=== PATIENT | female | born 1980 | race Caucasian/White ===

== ENCOUNTER 2020-02-20 09:18 | Inpatient (IN) | payer OTHER ==
[~2020-02-20] VITALS: Ht 165.1 cm; Wt 113.4 kg
[2020-02-20 09:18] VITALS: BP 155/87
[2020-02-20 10:38] LABS: HEMATOCRIT 37.4 % (37.0-47.0); HEMOGLOBIN 12.2 gm/dL (12.0-15.0); MCH 26.9 pg (26.0-34.0); MCHC 32.6 g/dL (28.0-37.0); MCV 82.5 fL (80.0-100.0); RBC 4.53 mil/uL (4.20-5.00); WBC 3.8 thou/uL (4.0-11.0)
[2020-02-20 10:50] LABS: ANION GAP 8 mmol/L (7-16); BUN 9 mg/dL (7-18); CALCIUM 8.8 mg/dL (8.5-10.1); CHLORIDE 100 mmol/L (98-107); CO2 28 mmol/L (21-32); CREATININE 1.1 mg/dL (0.6-1.0); GLUCOSE 110 mg/dL (74-106); POTASSIUM 3.8 mmol/L (3.5-5.1); SODIUM 136 mmol/L (136-145)
--- NOTE | 2020-02-20 10:57 | EKG ---
[facility] [place] [address] ELECTROCARDIOGRAM REPORT Name: SOUMYA CONKLIN Room #: [facility].#: [id number] Admission: Attend Phys: Discharge: Date of : 78 Report #: [id number] THIS REPORT FOR: cc: Frederick Foss MD, Patrick MD [facility] ~ THIS REPORT FOR: //name// [facility] ED Test Date: 2020-02-20 Test Time: 10:14:17 Pat Name: SOUMYA CONKLIN Department: Room: Gender: F Home Demonstrator: [facility] : 1980 Requested By: Parminder Ramos Order Number: [id number] MD: Lexa Mc Measurements Intervals [place] Rate: 103 P: [place]: QRS: -29 QRSD: 99 T: 79 QT: 341 QTc: 447 Interpretive Statements Pacemaker spikes or artifacts NSR Borderline left axis deviation RSR' in V1 or V2, probably normal variant No previous ECG available for comparison Electronically Signed On 02-20-2020 10:57:05 TEACHER BALLET by Lexa Mc [email or web address] <ELECTRONICALLY SIGNED> By: Lexa Mc MD, FACC 02/20/20 1057 1014 1014 Lexa Mc MD, FACC /EPI
[2020-02-20 10:59] LABS: TROPONIN-I <0.06 ng/mL (<0.06)
--- NOTE | 2020-02-20 11:55 | NUR ---
PHARMACY STATES THEY DO NOT HAVE THE DEXAmethasone in stock that they normally do. order has to be changed before dex can be admin, order is being changed at this time.
[2020-02-20 12:28] LABS: BE(vivo) 1.2 mmol/L (-2 to +3); HCO3 25.1 mmol/L (22.0-26.0); PCO2 37.7 mmHg (35.0-45.0); PO2 137.3 mmHg (80.0-100.0); pH 7.442 (7.360-7.450); sO2 98.8 % (92.0-98.0)
--- NOTE | 2020-02-20 13:52 | NUR ---
SPOKE TO PHARMACIST REGARDING INCOMPLETE ORDER FOR REMDESIVIR. HE STATED HE HAS CONTACTED ADMITTING DR REGARDING LFT THAT NEED TO BE COMPLETED PRIOR TO VERIFYING ORDER.
[2020-02-20 14:37] LABS: ALBUMIN 3.3 g/dL (3.4-5.0); DIRECT BILIRUBIN 0.1 mg/dL (<0.1-0.2); TOTAL BILIRUBIN 0.2 mg/dL (0.2-1.0); TOTAL PROTEIN 7.8 g/dL (6.4-8.2)
[2020-02-20] MEDS ORDERED: ESKALITH CR450 MG PO (16:28)
[2020-02-20] MEDS ORDERED: MINIPRESS2 MG PO (16:29)
[2020-02-20] MEDS ORDERED: TRAZODONE HCL100 MG PO (16:30)
[2020-02-20] MEDS ORDERED: QUETIAPINE FUM400 M1 PO (16:30)
[2020-02-20] MEDS ORDERED: LORATIDINE 10 M10 M1 PO (16:30)
[2020-02-20] MEDS ORDERED: FLONASE 0.05%50 MCG NARES (16:31)
[2020-02-20 17:16] VITALS: BP 124/85
[2020-02-20 20:03] VITALS: BP 146/74
[2020-02-20 20:09] VITALS: BP 146/74
[2020-02-20 23:54] VITALS: BP 152/91
[2020-02-21 00:18] VITALS: BP 146/80
[2020-02-21] MEDS ORDERED: QUETIAPINE FUM400 MG PO (00:30)
[2020-02-21] MEDS ORDERED: LITHIUM CARBON450 MG PO (00:31)
[2020-02-21] MEDS ORDERED: OXYBUTYNIN 5 MG5 M2 PO (00:33)
[2020-02-21 01:39] LABS: HEMATOCRIT 38.6 % (37.0-47.0); HEMOGLOBIN 12.5 gm/dL (12.0-15.0); MCH 26.8 pg (26.0-34.0); MCHC 32.4 g/dL (28.0-37.0); MCV 82.7 fL (80.0-100.0); RBC 4.67 mil/uL (4.20-5.00); RDW 15.3 % (10.5-14.5); WBC 5.5 thou/uL (4.0-11.0)
[2020-02-21 01:47] LABS: CALCIUM 8.4 mg/dL (8.5-10.1)
[2020-02-21 01:55] LABS: ALBUMIN 3.1 g/dL (3.4-5.0); TOTAL BILIRUBIN 0.3 mg/dL (0.2-1.0); TOTAL PROTEIN 7.3 g/dL (6.4-8.2)
[2020-02-21 05:44] VITALS: BP 126/76
[2020-02-21 07:04] VITALS: BP 123/60
--- NOTE | 2020-02-21 07:23 | NUR ---
ARRIVED FROM ER VIA BED. O2 TITRATED PER RT. HAD REACTION TO CONVALESCENT PLASMA. REPORTED TO ,ELOY RUSSELL, HAIRSPRING TRUER, HOSPITALIST. INFUSION WAS STOPPED IMMEDIATELY AND INVESTIGATION INITIATED PER BLOOD BANK. NEW ORDERS RECEIVED FROM AND CARRIED OUT. PT DID NOT C/O ANY DISCOMFORT. DENIES ITCHING,HIVES. ALL HOME MEDS RESTARTED PER HAIRSPRING TRUER ORDER AND HOME MEDS SEALED AND STORED IN ROOM PER PT BEING IN ISO FOR COVID. NO S/S ACUTE DISTRESS NOTED OR REPORTED AT THIS TIME. NO S/S ACUTE DISTRESS NOTED OR REPORTED AT THIS TIME. CARE TRANSFERRED TO INCOMING RN AT THIS TIME.
[2020-02-21 11:10] VITALS: BP 139/69
[2020-02-21 15:01] VITALS: BP 120/75
--- NOTE | 2020-02-21 15:29 | NUR ---
INITIAL ASSESSMENT: Received consult. JESSICA reviewed chart and spoke with nursing and attending physician. Pt was admitted from home due to pneumonia/COVID-19. Pt is in Enhanced Isolation. Pt had tested positive at [place] prior to admission. Pt has low grade fever and is on 5L of O2. Pt is on IV abx and IV steroids. Pt had convalescent plasma and has started course of Remdesivir. JESSICA placed call to pt's room. No answer. SW left voice message on pt's cell phone: [phone]. Per chart, pt has hx of bipolar disorder and asthma. Pt lives at home. JESSICA is following to assist as needed with discharge planning.
[2020-02-21 20:26] VITALS: BP 107/51
[2020-02-22 05:03] VITALS: BP 105/59
--- NOTE | 2020-02-22 05:41 | NUR ---
PT MAKING SLOW PROGRESS TOWARDS GOALS. O2 SAT LOW 90'S WITH O2 AT 5L PER NC. HARSH CONGESTED COUGH, MEDS PER ORDERS FOR COUGH. REPORTS IMPROVEMENT IN COUGH AFTER DOSING, ALLOWING HER TO SLEEP. LUNGS DIMINISHED WITH SOME COARSE SOUNDS NOTED OVER BOTH BASES THIS AM. CONTINUE TO MONITOR.
[2020-02-22 05:44] LABS: ALBUMIN 2.7 g/dL (3.4-5.0); DIRECT BILIRUBIN < 0.1 mg/dL (<0.1-0.2); SGOT 39 U/L (15-37); SGPT 38 U/L (30-65); TOTAL BILIRUBIN 0.2 mg/dL (0.2-1.0)
--- NOTE | 2020-02-22 11:35 | HC ---
[facility] [place] [address] CONSULTATION Name: SOUMYA CONKLIN Room #: 350- ADM IN M.R.#: [id number] Admission: 02/20/20 Attend Phys: Patrice Jennings MD Discharge: Date of : 78 Report #: [id number] THIS REPORT FOR: cc: CHERISE - [place] family physician/PCP CHERISE - No family physician/PCP Edwin Enciso MD ~ DATE OF SERVICE: 02/21/2020 INFECTIOUS DISEASE CONSULTATION ATTENDING PHYSICIAN: Dr. Patrice Jennings REASON FOR EVALUATION: COVID-19 infection, complicated by pneumonitis, respiratory failure in the setting of asthma. HISTORY OF PRESENT ILLNESS: Chart reviewed, patient examined. This is a 39-year-old with known history of asthma, has been feeling unwell for last several days. Apparently, she was diagnosed with a SARS-CoV-2 roughly 6 days ago. This was noted to have worsening signs and symptoms including productive cough, dyspnea and generalized aches and pains. She did have diarrhea as well. She had poor p.o. intake, subsequently developed fevers. She presented due to feeling of significant chest discomfort. Evaluation with chest x-ray noted interstitial opacities. She was borderline pancytopenic. ABGs on 12 liters showed a pO2 of 137. She concerns about progressive disease in this setting given her underlying lung issues that she was initiated on therapy with remdesivir as well as corticosteroids for the coronavirus as well as empiric antibacterials with ceftriaxone and azithromycin. ALLERGIES: LISTED TO PENICILLIN CAUSES URTICARIA. CURRENT MEDICATIONS: Include trazodone, ceftriaxone, fluticasone, loratadine, azithromycin, lithium, prazosin, quetiapine, dexamethasone, zinc, cholecalciferol, albuterol, remdesivir standard dosing 5 days. PAST MEDICAL HISTORY: As noted above, asthma, history of PTSD, bipolar disease. SOCIAL HISTORY: Nonsmoker, occasional ethanol, no illicit drug use. FAMILY HISTORY: Noncontributory. REVIEW OF SYSTEMS: Otherwise, unremarkable 10-point review of systems. PHYSICAL EXAMINATION: GENERAL: She appears ill, not overtly toxic. She has depressed affect. She is [facility] [address] [place] [address] CONSULTATION Name: SOUMYA CONKLIN Room #: 350-P [facility] IN M.R.#: [id number] Admission: 02/20/20 Attend Phys: Patrice Jennings MD Discharge: Date of : 78 Report #: [id number] in moderate distress secondary to increased respiratory effort, appears reasonably well nourished. VITAL SIGNS: Temperature 99.4, pulse 81, respirations 16, blood pressure 139/69. SKIN: Warm, dry, no rashes. HEENT: Normocephalic. Extraocular muscles are intact. NECK: Supple. Does have nasal cannula in place. LUNGS: Some wheezes, scattered coarse breath sounds, primarily at the lower lobes. HEART: Regular. I do not appreciate murmur. ABDOMEN: Mildly distended, soft, nontender. EXTREMITIES: No cyanosis. GENITOURINARY AND RECTAL: Deferred. LABORATORY DATA: Chest x-ray showed moderate widespread bilateral multifocal partially consolidative infiltrates, mild cardiomegaly. Electrolytes: Sodium 134, potassium 4.0, chloride 97, bicarbonate is 27, anion gap of 10, BUN and creatinine 8 and 1.0, glucose of 131, albumin 3.1, total protein 7.3. Liver functions are remarkable for AST of 53, ALT is 49. CBC: White count up to 5.5, H and H 12.5 and 38.6, platelets of 152. ABGs: pH 7.442, pCO2 of 37.7, pO2 of 137.3 was on 12 liters mask. ASSESSMENT AND PLAN: COVID-19 infection, complicated by pneumonitis, respiratory failure, does have some underlying asthma. We will continue current approach as prescribed. She remains somewhat tenuous. We will monitor expectantly. Wean off oxygen therapy as able. <ELECTRONICALLY SIGNED> By: Edwin Enciso MD 02/22/20 1135 1155 [id number] Edwin Enciso MD /nt
[2020-02-22 11:50] VITALS: BP 115/72
--- NOTE | 2020-02-22 14:56 | NUR ---
JESSICA reviewed chart and spoke with nursing and attending physician. Pt remains in Enhanced Isolation due to COVID-19. Pt febrile and is on IV abx. Pt is on IV steroids and completing course of Remdesivier. Pt is on 4L of O2. JESSICA placed call to pt's room to discuss possible discharge needs. No answer. JESSICA left voice message on pt's cell phon. Pt will need rest/exercise oximetry prior to discharge to determine if she needs home O2. JESSICA is following to assist as needed with discharge planning.
[2020-02-22 16:07] VITALS: BP 147/77
[2020-02-22 18:50] LABS: BASOPHILS 0.2 % (0.0-2.0); HEMATOCRIT 35.7 % (37.0-47.0); HEMOGLOBIN 11.6 gm/dL (12.0-15.0); LYMPHOCYTES 7.6 % (24.0-44.0); MCH 26.9 pg (26.0-34.0); MCHC 32.4 g/dL (28.0-37.0); MCV 82.9 fL (80.0-100.0); MONOCYTES 3.8 % (1.0-8.0); PLATELET COUNT 204 thou/uL (150-400); POLYS 88.4 % (36.0-66.0); RDW 15.8 % (10.5-14.5)
[2020-02-22 19:19] VITALS: BP 148/78
--- NOTE | 2020-02-22 19:31 | NUR ---
PATIENT CONT TO DECLINE AT THIS TIEM. CXRAY SHOWS WORSENING LUNGS, AND PATIENT IS NOTED TO BE NEED MORE OXYGEN WITH NO ACTIVITY. CURRENLTY ON 12L AND SATURATION IS LESS THAN 90%. ATTEMPTED TO USWE BIPAP AND PATEINT BECAME DEFENSIVE STATING SHE WILL NOT USE. EDUCATED ON NEED FOR BIPAP BUT SHE INSISTED SHE DOES NOT NEED IT.
[2020-02-22 21:57] LABS: BE(vivo) 1.9 mmol/L (-2 to +3); PCO2 44.4 mmHg (35.0-45.0); pH 7.402 (7.360-7.450); sO2 82.5 % (92.0-98.0)
[2020-02-22 21:58] LABS: PO2 46.7 mmHg (80.0-100.0)
[2020-02-23] VITALS (7 sets, daily range): BP systolic 110–160; BP diastolic 62–99
[2020-02-23 06:08] LABS: HEMATOCRIT 35.9 % (37.0-47.0); HEMOGLOBIN 11.5 gm/dL (12.0-15.0); MCH 26.5 pg (26.0-34.0); MCV 82.9 fL (80.0-100.0); RBC 4.33 mil/uL (4.20-5.00); RDW 15.8 % (10.5-14.5)
[2020-02-23 06:31] LABS: ALBUMIN 2.6 g/dL (3.4-5.0); DIRECT BILIRUBIN < 0.1 mg/dL (<0.1-0.2); SGOT 36 U/L (15-37); SGPT 31 U/L (30-65); TOTAL BILIRUBIN 0.2 mg/dL (0.2-1.0); TOTAL PROTEIN 7.2 g/dL (6.4-8.2)
[2020-02-23 06:37] LABS: POTASSIUM 4.2 mmol/L (3.5-5.1)
[2020-02-23 06:38] LABS: CALCIUM 8.6 mg/dL (8.5-10.1); CREATININE 0.9 mg/dL (0.6-1.0)
--- NOTE | 2020-02-24 00:47 | NUR ---
PT CONFUSED BIPOLAR, ANGRY AND ANXIOUS AT TIMES. TRAZADONE GIVEN FOR SLEEP. PT C/O EYES ITCHING AND ALLERGY SYMPTOMS. RECEIVING WEIGHER NOTIFIED PT WANTED BENADRYL AND ALREADY HAD TRAZADONE AND SEROQUL FOR SLEEP. BENADRYL 50 X1 GIVEN AND TYLENOL ES GIVEN FOR C/O ECKERT. PT IS RESTING QUIETLY PRESENTY. NO S/S DISTRESS.
[2020-02-24 02:19] LABS: HEMATOCRIT 36.2 % (37.0-47.0); HEMOGLOBIN 11.5 gm/dL (12.0-15.0); MCH 26.5 pg (26.0-34.0); MCHC 31.9 g/dL (28.0-37.0); MCV 83.3 fL (80.0-100.0); RBC 4.35 mil/uL (4.20-5.00); RDW 15.6 % (10.5-14.5); WBC 7.1 thou/uL (4.0-11.0)
[2020-02-24 02:29] LABS: ALBUMIN 2.6 g/dL (3.4-5.0); DIRECT BILIRUBIN < 0.1 mg/dL (<0.1-0.2); SGOT 39 U/L (15-37); SGPT 31 U/L (30-65); TOTAL BILIRUBIN 0.2 mg/dL (0.2-1.0); TOTAL PROTEIN 7.1 g/dL (6.4-8.2)
[2020-02-24 02:41] LABS: CALCIUM 8.7 mg/dL (8.5-10.1); POTASSIUM 4.4 mmol/L (3.5-5.1)
[2020-02-24 03:24] VITALS: BP 129/67
--- NOTE | 2020-02-24 03:43 | NUR ---
NOTIFIED COMMUNITY SERVICE OFFICER AND DR SOL PT RR 24-26. SAT 97%. WE WILL KEEP PT HERE FOR NOW SHE IS REFUSING BIPAP.
--- NOTE | 2020-02-24 03:47 | NUR ---
NOTIFIED NURSING CABLE SPLICER HELPER RR INCREASED TO 28. PT AWAKENS EASILY. SAT 97% FIO2 78, LF 55%. OTHER VSS PRESENTLY.
--- NOTE | 2020-02-24 03:49 | NUR ---
OSES RN TRANSPLANT STATED WE WILL KEEP HER HERE FOR NOW DUE TO LAST ICU BED AVAILABLE.
--- NOTE | 2020-02-24 05:50 | NUR ---
PT IS RESTING QUEITLY PRESENTLY WITHOUT C/O. SHE AWAKENS EASILY WHEN HER NAME IS CALLED. SATS 95-97 ON FL 55% AND FIO2 78. RR 28. RT IS AWARE AND BELT PRESS OPERATOR AWARE. NURSING BELT PRESS OPERATOR SPOKE WITH DR SOL ALSO. WE WILL KEEP HER HERE ON FLOOR FOR NOW DUE TO ONLY 1 ICU BED LEFT. PT IS REFUSING BIPAP. WILL CALL RR IF DETERIORATES.
[2020-02-24 07:34] VITALS: BP 129/78
--- NOTE | 2020-02-24 10:36 | NUR ---
discussed during prime time via phone call, she still requiring o2, possible will need vent and transfer to icu when bed opens. noted per chart she has been refusing bipap. no anticpated dc over the weekend. will cont following as needed for dc needs.
[2020-02-24 11:18] VITALS: BP 131/78
[2020-02-24 15:57] VITALS: BP 149/88
--- NOTE | 2020-02-24 18:36 | NUR ---
PATIENT CONT ON HIGH KEITH OXYGEN SAT ARE JUST ABOVE 90% WHILE SHE RESTS AND BELOW 90 WHEN SHE IS EATING. SHE IS ALER AND INCONT OF BOWEL AND BLADDER. PLEASANT WITH CARES. WILL CONT WITH PLAN OF CARE.
[2020-02-24 19:05] VITALS: BP 141/85
[2020-02-25 02:50] VITALS: BP 135/75
[2020-02-25 02:57] LABS: HEMATOCRIT 33.9 % (37.0-47.0); HEMOGLOBIN 10.9 gm/dL (12.0-15.0); MCH 26.7 pg (26.0-34.0); MCHC 32.2 g/dL (28.0-37.0); MCV 82.9 fL (80.0-100.0); RBC 4.09 mil/uL (4.20-5.00); RDW 15.4 % (10.5-14.5); WBC 7.5 thou/uL (4.0-11.0)
[2020-02-25 03:02] LABS: CALCIUM 8.9 mg/dL (8.5-10.1); POTASSIUM 4.4 mmol/L (3.5-5.1)
--- NOTE | 2020-02-25 04:16 | NUR ---
PT MAKING SLOW PROGRESS TOWARDS GOALS. PT STATES SHE HAS NOT BEEN OUT OF BED IN 2-3 DAYS. SHE HAS BEEN INCONTINENT OF URINE AND REPORTS SHE IS TOO SOB TO GET UP TO COMMODE. WILL ASK DAY RN TO REQUEST YANEZ. LUNGS DIMINISHED AND COARSE IN BOTH BASES. CONTINUE TO MONITOR.
[2020-02-25 12:14] VITALS: BP 143/76
[2020-02-25 15:26] VITALS: BP 140/78
--- NOTE | 2020-02-25 18:02 | NUR ---
PLEASANT WITH CARES. SHE CONT ON HIGH KEITH OXYGEN. NEW YANEZ CATH PLACED PATEITN IS BED BOUND AND CONSTANTLY WET. YANEZ PLACED IN ANTICIPATION OF POSSIBLE ICU ADMISSION AND INTUBATION. WILL CONT WITH PLAN OF CARE.
[2020-02-25 19:12] VITALS: BP 143/80
--- NOTE | 2020-02-25 22:13 | NUR ---
PT ALERT AND ORIENTED X4. VSS. C/O BACK PAIN. MEDICATED WITH TYLENOL. HS SCHEDULED MEDS GIVEN. SHE IS SLEEPING PRESENTLY. NO S/S OF DISTRESS WITH OPTIFLO AT CURRENT SETTINGS. YANEZ DRAINING CLEAR YELLOW URINE. BED ALAM IS ON. WILL CONTINUE TO MONITOR PT FOR CHANGES.
[2020-02-25 23:46] VITALS: BP 122/65
[2020-02-26 03:11] VITALS: BP 130/71
--- NOTE | 2020-02-26 03:24 | NUR ---
NOTIFIED GENERAL STUDIES PROGRAM CHAIR REGARDING HR 30-40'S TONIGHT AND INFORMED HER PT ON PRAZOSIN, TRAZADONE, SEROQUEL ETC. PT BECOMES BRADYCARDIAC AT HS BUT NEW IN THE 30'S TONIGHT. PT ASYMPTOMATIC, VSS, AWAKENS BRIEFLY THEN BACK TO SLEEP DUE TO HS MEDS.
[2020-02-26 05:40] LABS: HEMOGLOBIN 11.2 gm/dL (12.0-15.0); MCH 26.5 pg (26.0-34.0); MCV 82.8 fL (80.0-100.0); RBC 4.22 mil/uL (4.20-5.00); RDW 15.7 % (10.5-14.5); WBC 9.2 thou/uL (4.0-11.0)
[2020-02-26 05:46] LABS: CALCIUM 8.8 mg/dL (8.5-10.1); CREATININE 0.9 mg/dL (0.6-1.0); POTASSIUM 4.4 mmol/L (3.5-5.1)
[2020-02-26 07:34] VITALS: BP 139/78
[2020-02-26 11:10] VITALS: BP 135/70
--- NOTE | 2020-02-26 19:02 | NUR ---
PLEASANT WITH CARE AND CONT TO IMPROVE AT THIS TIME. PLEASANT WITH CARE. CONT ON HIGH KEITH OXYGEN BUT HAS NOT HAD NEED FOR MORE OXYGEN TODAY. WILL CONT WITH PLAN OF CARE.
[2020-02-26 20:08] VITALS: BP 157/80
[2020-02-27 00:04] VITALS: BP 122/58
--- NOTE | 2020-02-27 02:10 | NUR ---
PT ALERT AND ORIENTED X4. VSS AFEBRILE. 30%lf FIO2 35% . PT BREATHING BETTER. LUNGS SOUND CLEARER. C/O BACK PAIN. MEDICATED WITH 1 TYLENOL. TRAZADONE GIVEN FOR SLEEP. COUGH MEDICAINE GIVEN. PT HAS BEEN SLEEPING QUIETLY. NO S/S DISTRESS. BED DOWN. CALL LIGHT IN REACH. BED ALARM ON.
[2020-02-27 05:10] VITALS: BP 147/73
[2020-02-27 05:36] LABS: ALBUMIN 2.5 g/dL (3.4-5.0); CALCIUM 8.5 mg/dL (8.5-10.1); POTASSIUM 4.2 mmol/L (3.5-5.1); TOTAL BILIRUBIN 0.4 mg/dL (0.2-1.0); TOTAL PROTEIN 6.3 g/dL (6.4-8.2)
[2020-02-27 05:41] LABS: HEMATOCRIT 34.6 % (37.0-47.0); HEMOGLOBIN 11.2 gm/dL (12.0-15.0); MCHC 32.5 g/dL (28.0-37.0); MCV 83.1 fL (80.0-100.0); PLATELET COUNT 276 thou/uL (150-400); RBC 4.16 mil/uL (4.20-5.00); RDW 15.5 % (10.5-14.5); WBC 10.4 thou/uL (4.0-11.0)
[2020-02-27 07:12] LABS: METAMYELOCYTES 2 %
--- NOTE | 2020-02-27 07:34 | EKG ---
[facility] [place] [address] ELECTROCARDIOGRAM REPORT Name: SOUMYA CONKLIN Room #: 350-P ADM IN M.R.#: [id number] Admission: 02/20/20 Attend Phys: Patrice Jennings MD Discharge: Date of : 78 Report #: [id number] THIS REPORT FOR: cc: CHERISE - [place] family physician/PCP CHERISE - [place] family physician/PCP Lexa Mc MD [facility] THIS REPORT FOR: //name// [facility] Test Date: 2020-02-26 Test Time: 15:04:17 Pat Name: SOUMYA CONKLIN Department: Room: 350 P Gender: F Typing Checker: HARESH : 1980 Requested By: Vance Bautista Order Number: [id number] MD: Lexa Mc Measurements Intervals [place] Rate: 64 P: -9 MI: 173 QRS: -14 QRSD: 98 T: 40 QT: 406 QTc: 419 Interpretive Statements Sinus rhythm Left ventricular hypertrophy Compared to ECG 02/20/2020 10:14:17 Left ventricular hypertrophy now present Electronically Signed On 02-27-2020 7:34:22 FITNESS FLOOR ATTENDANT by Lexa Mc [email or web address] <ELECTRONICALLY SIGNED> By: Lexa Mc MD, FACC 02/27/20 0734 1504 1504 Lexa Mc MD, [facility] /EPI
[2020-02-27 08:02] VITALS: BP 153/70
[2020-02-27 11:17] VITALS: BP 154/80
--- NOTE | 2020-02-27 13:04 | NUR ---
JESSICA reviewed chart and spoke with nursing and attending physician. Pt remains in Enhanced Isolation due to COVID-19. Pt is afebrile and on 6L of O2. Pt was requiring optiflow over the weekend. Pt is on IV abx and IV steroids. Convalescent plasma and course of Remdesivir have been completed. SW placed call to pt's room. No answer. SW requested therapy evals to assist with recommendations for discharge. JESSICA is following to assist as needed with discharge planning.
[2020-02-27 15:32] VITALS: BP 165/86
--- NOTE | 2020-02-27 18:19 | NUR ---
PT ABLE TO MOVE IN BED, STILL TOO SHORT OF BREATH TO GET UP AND WALK TO BATHROOM. WENT FROM OPTIFLO TO 5L NC, BREATHING BETTER, PT STATED THAT HER INSIDES FELT LIKE THEY WERE "GOING TO COME OUT" THIS MORNING, A LITTLE DIFFERENT THEN NAUSEA, BY THIS AFTERNOON SHE FELT BETTER, GAVE UPDATE TO HER MOM WELL POC,
[2020-02-27 19:12] VITALS: BP 142/73
[2020-02-28 03:49] VITALS: BP 155/84
--- NOTE | 2020-02-28 05:38 | NUR ---
Assumed pt care at 1900. A/OX4, VSS. C/o a headache at beginning of shift medicated with Tylenol with relief reported. Pt has generalized edema with dyspnea on exertion;on 5L/NC. Sinus arrythmia/valente on the monitor. [place] patent to DD with light yellow urine noted. Resting quietly w/o any distress noted,will continue to monitor pt.
[2020-02-28 11:02] VITALS: BP 152/72
[2020-02-28 15:06] VITALS: BP 133/87
--- NOTE | 2020-02-28 15:21 | NUR ---
SW reviewed chart and spoke with nursing and attending physician. Pt remains in Enhanced Isolation due to COVID-19. Pt is afebrile and is on 4L of O2. Pt is on IV abx and IV steroids. PT/OT ordered to evaluate pt for discharge needs. SW spoke with pt via phone. Introduced role of SW. Pt is alert/orientated x 4. Pt reports she lives at home with her s/o and his children. Prior to admission, pt was independent with ADLs. No use of DME. No hx of HH services or post-acute placement. Pt states she does not currently have a PCP. Pt has gone to [facility] in [place], [place]. Pt has also gone to [facility] in [facility]. SW discussed need for rehab or HH/Home O2. Pt states she thinks she will need home O2. SW explained process for needing prior auth from Medicaid. Pt verbalized understanding. Awaiting therapy evals at this time. JESSICA is following to assist as needed with discharge planning.
--- NOTE | 2020-02-28 17:20 | NUR ---
ASSUMED PATIENT CARE AT 0700. A/O X4. TITRATED O2 TO 4L. PATIENT WORK WITH PT/OT. DESAT WITH ACTIVITY. SLOWLY TOWAARDS POC GOALS.
[2020-02-28 20:24] VITALS: BP 195/83
[2020-02-28 21:20] VITALS: BP 173/90
[2020-02-29 00:16] VITALS: BP 152/71
[2020-02-29 05:12] VITALS: BP 148/77
--- NOTE | 2020-02-29 05:21 | NUR ---
Up in recliner chair at HS. She slept well during the night. Maintaining O2 sat in the upper 90's on 4L/NC. She reported being short of breath with exertion. Cont. on enhnaced precaution , afebrile. SB when asleep ,SR while awake. Making progress towards care plan goals.
[2020-02-29 07:01] VITALS: BP 157/92
--- NOTE | 2020-02-29 10:40 | NUR ---
WOUND CONSULT; I WAS ASKED TO SEE THIS PATIENT TO REMOVE SUTURES FROM THE LEFT HEEL. S/P FOOT SURGERY FROM A PREVIOUS FACILITY. TWO SUTURES WERE REMOVED WITH GREAT DIFFICULTY. THE PROCEEDURE WAS PAINLESS TO THE PATIENT. THE AREA WAS CALLOUSED AND THE SUTURES WERE EMBEDDED. RECOMMENDATIONS; COVER WITH A BANDAID RN PRESENT
[2020-02-29 15:08] VITALS: BP 132/68
--- NOTE | 2020-02-29 15:16 | NUR ---
SW reviewed chart and spoke with nursing and attending physician. Pt remains in Enhanced Isolation due to COVID-19. Pt is afebrile and on 4L of O2. Pt is on IV abx and IV steroids. Plan is for pt to discharge home when medically stable. Will need prior auth from [place]-Medicaid if pt needs DME. JESSICA is following to assist as needed with discharge planning.
--- NOTE | 2020-02-29 18:18 | NUR ---
SSUMED PATIENT CARE AT 0700. A/O X4. DESAT WITH ACTIVITY. 4L/NC. BEAU POLANCO'D. SLOWLY TOWARDS POC GOALS.
[2020-02-29 19:23] VITALS: BP 157/83
[2020-03-01 03:52] VITALS: BP 143/73
--- NOTE | 2020-03-01 06:06 | NUR ---
Up in the recliner chair at . Denies any pain. She stated slept well during the night. Maintaining O2 sat in the mid to upper 90's on 3L/NC. She still get short of breath with exertion. Voiding per commode. SB in the 40's while sound asleep the SR when awake. Making some progress towards care plan goals.
[2020-03-01 07:20] VITALS: BP 125/58
[2020-03-01 10:11] LABS: HEMATOCRIT 37.1 % (37.0-47.0); HEMOGLOBIN 12.1 gm/dL (12.0-15.0); MCHC 32.5 g/dL (28.0-37.0); MCV 82.9 fL (80.0-100.0); RBC 4.47 mil/uL (4.20-5.00); RDW 15.3 % (10.5-14.5); WBC 10.7 thou/uL (4.0-11.0)
[2020-03-01 10:30] LABS: CALCIUM 9.1 mg/dL (8.5-10.1); CREATININE 1.1 mg/dL (0.6-1.0); MAGNESIUM 2.1 mg/dL (1.8-2.4); POTASSIUM 3.9 mmol/L (3.5-5.1)
--- NOTE | 2020-03-01 13:23 | NUR ---
JESSICA reviewed chart and spoke with nursing and attending physician. Pt remains in Enhanced Isolation due to COVID-19. Pt had a fever last evening. Pt is on 2L of O2. Pt is on IV abx and IV steroids. Discharge home is anticipated in 1-2 days. JESSICA spoke with pt via phone to discuss discharge plan. Pt states she feels strong enough to go home. SW discussed the possible need for home O2. Pt verbalized understanding and is agreeable with home O2 if needed. Options provided for [employer] companies. No preference voiced. JESSICA confirmed pt's home address and phone number. JESSICA faxed face sheet and H&P to [facility] for review. Notified [facility] liaison. Pt will need rest/exercise oximetry to determine home O2 needs. Will need prior auth from Medicaid for home O2. JESSICA is following to assist as needed with discharge planning.
--- NOTE | 2020-03-01 18:28 | NUR ---
PATIENT RESTED IN ROOM THROUGH THE DAY. SHE IS IN A GOOD MODE. PLEASANT WITH CARE. WILL CONT WITH PLAN OF CARE.
[2020-03-01 19:07] VITALS: BP 145/78
[2020-03-02 03:29] VITALS: BP 10/57; BP 108/57
--- NOTE | 2020-03-02 07:11 | NUR ---
03/01/20 1900 ASSUMED CARE OF PT AFTER REPORT. 1999 BASELINE ASSESSMENT COMPLETED, PT RESTING IN BED WITH NO COMPLAINTS, SOA WITH EXERTION OR AMBULATION TO BATHROOM, O2 NC 0600 NO CHANGES THROUGHOUT SHIFT, PT THROWS THINGS ON THE FLOOR, WILL CONTINUE TO MONITOR
[2020-03-02] MEDS ORDERED: PROVENTIL HFA6.7 G1 INH (12:03)
[2020-03-02] MEDS ORDERED: VITAMIN D325 MC1 PO (12:03)
[2020-03-02] MEDS ORDERED: ZINC SULFATE 2220 MG PO (12:03)
[2020-03-02] MEDS ORDERED: GUAIFEN-CODEINE10 ML PO (12:03)
[2020-03-02] MEDS ORDERED: PREDNISONE 20 M20 M1 PO (12:03)
--- NOTE | 2020-03-02 13:13 | NUR ---
DISCHARGE NOTE: JESSICA reviewed chart and spoke with nursing and attending physician. Pt is medically stable for discharge home today. Rest/exercise oximetry ordered to determine if pt needs home O2. Will need prior auth from Medicaid for O2. JESSICA spoke with pt via phone to discuss discharge plan. Pt states her transportation is at the hospital ready to take her home. JESSICA explained the need for O2 test prior to discharge. JESSICA updated pt's nurse. JESSICA provided update to [facility] liaison who will provide a portable tank if needed for pt's discharge. JESSICA is following to assist as needed with discharge planning.
[2020-03-02 15:12] VITALS: BP 108/57
[2020-03-02 15:28] VITALS: BP 108/57
--- NOTE | 2020-03-02 16:11 | NUR ---
PATIENT DISCHARGED AT THIS TIME TO HOME. SHE IS IN GOOD SPIRITS. ASSISTED TO CAR. PORTABLE OXYGEN WITH PATIENT. WILL CONT WITH PLAN OF CARE.
== END 2020-03-02 16:10 | disposition home or self-care (01) | DRG 871 ==
LOC: ER 09:18 → 3W 13:12 → EROBS 13:12 → 3W 19:55
PROVIDERS: Emergency Medicine; Internal Medicine Pulmonary Disease; Specialist; ADMIT Internal Medicine; ATTEND Internal Medicine
PROC: XW033E5 Introduction of Remdesivir Anti-infective into Peripheral Vein, Percutaneous Approach, New Technology Group 5 (ICD-10-PCS; principal; 2020-02-20)
PROC: XW13325 Transfusion of Convalescent Plasma (Nonautologous) into Peripheral Vein, Percutaneous Approach, New Technology Group 5 (ICD-10-PCS; 2020-02-21)
PROC: 5A0935A Assistance with Respiratory Ventilation, Less than 24 Consecutive Hours, High Flow/Velocity Cannula (ICD-10-PCS; 2020-02-22)
PROC: 5A0935A Assistance with Respiratory Ventilation, Less than 24 Consecutive Hours, High Flow/Velocity Cannula (ICD-10-PCS; 2020-02-23)
PROC: 5A0935A Assistance with Respiratory Ventilation, Less than 24 Consecutive Hours, High Flow/Velocity Cannula (ICD-10-PCS; 2020-02-24)
PROC: 5A0935A Assistance with Respiratory Ventilation, Less than 24 Consecutive Hours, High Flow/Velocity Cannula (ICD-10-PCS; 2020-02-25)
PROC: 5A0935A Assistance with Respiratory Ventilation, Less than 24 Consecutive Hours, High Flow/Velocity Cannula (ICD-10-PCS; 2020-02-26)
DX: A41.89 Other specified sepsis (principal); U07.1 COVID-19; J12.89 Other viral pneumonia; J96.01 Acute respiratory failure with hypoxia; J45.901 Unspecified asthma with (acute) exacerbation; R04.2 Hemoptysis; Z68.41 Body mass index [BMI] 40.0-44.9, adult; J45.909 Unspecified asthma, uncomplicated; E66.01 Morbid (severe) obesity due to excess calories; F43.10 Post-traumatic stress disorder, unspecified; X58.XXXA Exposure to other specified factors, initial encounter; F31.9 Bipolar disorder, unspecified; Z79.899 Other long term (current) drug therapy
CPT/HCPCS: 10879

== ENCOUNTER → 2020-03-20 | Outpatient (CLI) | payer OTHER ==
[~2020-03-20] MED LIST: ESKALITH CR450 MG PO; FLONASE 0.05%50 MCG NARES; GUAIFEN-CODEINE10 ML PO; LITHIUM CARBON450 MG PO; LORATIDINE 10 M10 M1 PO; MINIPRESS2 MG PO; OXYBUTYNIN 5 MG5 M2 PO; PREDNISONE 20 M20 M1 PO; PROVENTIL HFA6.7 G1 INH; QUETIAPINE FUM400 M1 PO; QUETIAPINE FUM400 MG PO; TRAZODONE HCL100 MG PO; VITAMIN D325 MC1 PO; ZINC SULFATE 2220 MG PO
--- NOTE | 2020-03-20 16:27 | EKG ---
[facility] [place] [address] ELECTROCARDIOGRAM REPORT Name: SOUMYA CONKLIN Room #: [facility]#: [id number] Admission: 03/20/20 Attend Phys: Physician not on staff Discharge: Date of : 78 Report #: [id number] [facility] Test Date: 2020-03-20 Test Time: 15:03:06 Pat Name: SOUMYA CONKLIN Department: Room: Gender: F Heat And Frost Insulator: Galina TYSON : 1980 Requested By: Physician staff Order Number: [id number] MD: Lexa Mc Measurements Intervals [place] Rate: 100 P: 12 RI: 143 QRS: -19 QRSD: 109 T: 27 QT: 359 QTc: 463 Interpretive Statements Sinus tachycardia RSR' in V1 or V2, probably normal variant Left ventricular hypertrophy Compared to ECG 02/26/2020 15:04:17 RSR' in V1 or V2 now present Sinus rhythm no longer present Electronically Signed On 03-20-2020 16:27:20 RADIO FREQUENCY DESIGN ENGINEER by Lexa Mc [email or web address] <ELECTRONICALLY SIGNED> By: Lexa Mc MD, [facility] 03/20/20 1627 1503 1503 Lexa Mc MD, FAC /EPI
== END ==
LOC: CV 14:15
DX: I42.2 Other hypertrophic cardiomyopathy (principal); R00.0 Tachycardia, unspecified